=== PATIENT | male | born 1995 | race Caucasian/White ===

== ENCOUNTER 2020-07-19 09:35 | Outpatient (CLI) | payer OTHER, SELFPAY ==
--- NOTE | 2020-07-24 16:59 | WPDHOLTEREM ---
Holter/Event Monitor Holter/Event Monitor Date of procedure: 07/19/20 Procedure Type: 24 hour holter monitor Indications: Palpitations Conclusion: 1. 24 hour holter on 07/19/20 2. Underlying rhythm is sinus rhythm. HR range 54-160 bpm; average HR 84 bpm. 3. No premature supraventricular complexes. No supraventricular tachycardia. 4. There are 4191 premature ventricular complexes, 5 ventricular couplets, 32 ventricular bigeminy and 445 ventricular trigeminy. No ventricular tachycardia. 5. No sinoatrial or atrioventricular blocks. No significant pauses greater than 2 seconds. 6. No symptoms available for correlation.
== END 2020-07-19 09:36 | disposition home or self-care (01) ==
LOC: ANHCARD 09:36
PROVIDERS: PCP Physician Assistant; Visit Provider Physician Assistant
DX: R00.2 Palpitations (principal)
CPT/HCPCS: 93225; 93226

== ENCOUNTER 2021-06-25 15:48 | Outpatient (CLI) | payer OTHER, SELFPAY ==
--- NOTE | ~2021-06-25 | MR_ITS ---
EXAMINATION: MR lumbar spine wo con DATE: 06/25/2021 16:39 INDICATION: Dorsalgia, unspecified. TECHNIQUE: Magnetic resonance imaging (MRI) of the lumbar spine was performed without intravenous con trast. Sequences included sagittal T2-weighted FSE, sagittal T2-weighted FS FSE, sagittal T1-weighted FSE, and axial T2-weighted FSE. COMPARISON: Lumbar spine MRI 07/02/2016 FINDINGS: Bone alignment is normal. Vertebral body heights are normal. There is mildly decreased disc height at L4-L5 and moderately decreased disc height at L5-S1 with endplate remodeling. The distal s nando cord signal intensity is normal. The conus medullaris is at L2. The following disc levels are s pecifically discussed: L1-L2 through L3-L4: The disc does not extend beyond the endplate margin. There is no facet joint ost eoarthritis. There is no neural foraminal stenosis. There is no central canal stenosis. L4-L5: The disc is mildly bulging with superimposed right subarticular and foraminal zone zone extrus ion with mass effect on right L5 nerve root in the right lateral recess. There is mild left facet elvira nt osteoarthritis. There is moderate right and mild left neural foraminal stenosis. There is mild loretta tral canal stenosis. L5-S1: The disc is bulging with superimposed left central extrusion with mass effect on left S1 and S 2 nerve roots. There is no facet joint osteoarthritis. There is moderate bilateral neural foraminal s tenosis. There is moderate central canal stenosis. There is severe stenosis of left lateral recess. IMPRESSION: 1. Worsened severe lower lumbar spondylosis. Reviewed, dictated and finalized at location A. ODITIES REQUIREMENTS ANALYST
== END 2021-06-25 15:49 | disposition home or self-care (01) ==
PROVIDERS: PCP Internal Medicine; Visit Provider Physician Assistant
DX: M54.9 Dorsalgia, unspecified (principal); M47.816 Spondylosis without myelopathy or radiculopathy, lumbar region
CPT/HCPCS: 72148

== ENCOUNTER 2021-07-01 12:17 | Outpatient (CLI) | payer OTHER, SELFPAY ==
--- NOTE | ~2021-07-01 | US_ITS ---
EXAMINATION: US scrotum doppler DATE: 07/01/2021 13:17 INDICATION: Left testicular mass. TECHNIQUE: Grayscale and Doppler ultrasound images of the testes were obtained. COMPARISON: CT abdomen and pelvis 04/02/2016, ultrasound testes 08/12/2013, lumbar spine MRI 06/25/21 FINDINGS: The right testis measures 4.1 x 2.1 x 2.6 cm. The left testis measures 5.8 x 3.2 x 3.6 cm. There is a heterogeneous hypoechoic mass involving nearly the entire left testis. There is vascular f low in the testes. The right epididymis is normal with normal vascular flow. The left epididymis is n ot well visualized. There is no varicocele or hydrocele. IMPRESSION: 1. 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 The lumbar spine MRI from 06/25/2021 demonstrates a 1.7 x 1.2 cm left para- aortic lymph node, consistent with metastatic disease. I discussed these results with Dr. Orozco. Reviewed, dictated and finalized at location B. LITIES SPECIALIST IMPRESSION: 1. 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 The lumbar spine MRI from 06/25 demonstrates a 1.7 x 1.2 cm left para-aortic lymph node, consistent with metastatic disease. I discussed these results with Dr. Orozco.
== END 2021-07-01 12:18 | disposition home or self-care (01) ==
PROVIDERS: PCP Internal Medicine; Visit Provider Urology
DX: N50.89 Other specified disorders of the male genital organs (principal)
CPT/HCPCS: 76870; 93976

== ENCOUNTER 2022-02-19 06:45 | Outpatient (CLI) | payer OTHER, SELFPAY ==
--- NOTE | ~2022-02-19 | MR_ITS ---
EXAMINATION: MR lumbar spine wo con DATE: 02/19/2022 07:23 INDICATION: Back pain. TECHNIQUE: Magnetic resonance imaging (MRI) of the lumbar spine was performed without intravenous con trast. Sequences included sagittal T2-weighted FSE, sagittal T2-weighted FS FSE, sagittal T1-weighted FSE, and axial T2-weighted FSE. COMPARISON: Lumbar spine MRI 06/25/2021 FINDINGS: There is 3 mm retrolisthesis of L5 on S1. There is mild chronic anterior wedging of T11-L2 vertebral bodies, likely physiologic. There is fatty marrow replacement from T11 to the sacrum, likel y changes of radiation therapy. There is moderately decreased disc height at L5-S1. The distal spinal cord signal intensity is normal. The conus medullaris is at L2. The following disc levels are specif ically discussed: L1-L2: There is a central protrusion. There is no facet joint osteoarthritis. There is no neural fora donavan stenosis. There is mild central canal stenosis. L2-L3: The disc does not extend beyond the endplate margin. There is no facet joint osteoarthritis. T here is no neural foraminal stenosis. There is no central canal stenosis. L3-L4: The disc does not extend beyond the endplate margin. There is no facet joint osteoarthritis. T here is no neural foraminal stenosis. There is no central canal stenosis. L4-L5: The disc is bulging with superimposed right subarticular and foraminal zone extrusion. There i s mild bilateral facet joint osteoarthritis. There is moderate right and mild left neural foraminal s tenosis. There is moderate stenosis of right lateral recess. L5-S1: The disc is bulging with superimposed left central extrusion. There is no facet joint osteoart hritis. There is moderate bilateral neural foraminal stenosis. There is mild central canal stenosis. IMPRESSION: 1. Moderate lower lumbar spondylosis with improved extrusion at L5-S1. Reviewed, dictated and finalized at location A.
== END 2022-02-19 06:46 | disposition home or self-care (01) ==
PROVIDERS: PCP Physician Assistant; Visit Provider Physician Assistant
DX: M47.817 Spondylosis without myelopathy or radiculopathy, lumbosacral region (principal); M48.07 Spinal stenosis, lumbosacral region
CPT/HCPCS: 72148